=== PATIENT | male | born 1970 | race Caucasian/White ===

== ENCOUNTER → 2022-03-29 | Outpatient (CLI) | payer BC | END | disposition home or self-care (01) | LOC: LAB SHORT 11:12 → PLD 11:12 | DX: L98.0 Pyogenic granuloma (principal) | CPT/HCPCS: 88305 ==

== ENCOUNTER 2022-06-18 09:09 | Day surgery (SDC) | payer BC ==
[~2022-06-18] VITALS: Ht 188 cm; Wt 118.0 kg
== END 2022-06-18 11:11 | disposition home or self-care (01) ==
LOC: ORSCSDS 09:09
PROVIDERS: Otolaryngology
PROC: 0CBPXZZ Excision of Tonsils, External Approach (ICD-10-PCS; principal; 2022-06-18 10:30)
DX: J35.1 Hypertrophy of tonsils (principal); G47.33 Obstructive sleep apnea (adult) (pediatric); J35.01 Chronic tonsillitis; E66.9 Obesity, unspecified; Z68.34 Body mass index [BMI] 34.0-34.9, adult
CPT/HCPCS: 88304; J0330; J2250; J2704; J3010; J7120